=== PATIENT | female | born 1945 | race Hispanic/Latino ===

== ENCOUNTER → 2018-07-29 | Outpatient (CLI) | payer OTHER | END | disposition home or self-care (01) | LOC: RAH 10:46 | PROVIDERS: ATTEND Family Medicine | DX: Z12.31 Encounter for screening mammogram for malignant neoplasm of breast (principal) | CPT/HCPCS: 77067 ==

== ENCOUNTER → 2019-11-21 | Outpatient (CLI) | payer OTHER | END | disposition home or self-care (01) | LOC: RAH 09:22 | PROVIDERS: ATTEND Family Medicine | DX: R94.31 Abnormal electrocardiogram [ECG] [EKG] (principal); R07.9 Chest pain, unspecified | CPT/HCPCS: 93306; 93356 ==

== ENCOUNTER → 2019-12-01 | Outpatient (CLI) | payer OTHER ==
[~2019-12-01] MED LIST: REGADENOSON 0.4 MG/5 ML PF SYG IVP SCH
== END | disposition home or self-care (01) ==
LOC: RAH 09:01
PROVIDERS: ATTEND Family Medicine
DX: R94.31 Abnormal electrocardiogram [ECG] [EKG] (principal); R07.9 Chest pain, unspecified
CPT/HCPCS: 78452; 93017; 96374; A9500 ×2; J2785

== ENCOUNTER 2020-05-20 11:07 | Emergency (ER) | payer OTHER ==
[2020-05-20 13:06] LABS: BASOPHILS % (AUTO) 0.5 % (0.0-5.0); EOSINOPHILS % (AUTO) 0.8 % (0.0-8.0); HEMATOCRIT 35.6 % (36-48); LYMPHOCYTES % (AUTO) 12.4 % (21.0-51.0); MEAN CORPUSCULAR HEMOGLOBIN 27.3 pg (27.0-33.0); MEAN CORPUSCULAR HGB CONC 32.3 g/dL (32.0-36.0); MEAN CORPUSCULAR VOLUME 84.4 fL (79-99); MONOCYTES % (AUTO) 8.8 % (3.0-13.0); PLATELET COUNT (AUTO) 141 K/uL (130-400); RED BLOOD CELL COUNT(AUTO) 4.22 MIL/uL (4.00-5.50); RED CELL DISTRIBUTION WIDTH 13.4 % (11.0-15.5); WHITE BLOOD COUNT (AUTO) 6.5 K/uL (4.8-10.8)
[2020-05-20 13:24] LABS: ALBUMIN 3.8 g/dL (3.5-5.0); B-TYPE NATRIURETIC PEPTIDE 13 pg/mL (0-100); BILIRUBIN,TOTAL 0.4 mg/dL (0.2-1.0); POTASSIUM 4.1 mmol/L (3.5-5.1); TOTAL PROTEIN, SERUM 7.4 g/dL (6.0-8.3)
[2020-05-20 13:28] LABS: RAPID GROUP A STREP NEGATIVE (NEGATIVE)
[2020-05-20] MEDS ORDERED: ALBUTEROL INHALER 90MCG/INH IH ONE (14:12)
[2020-05-20] MEDS ORDERED: DEXAMETHASONE SOD PHOSPHATE 10MG/ML 1ML VIAL ONE (14:13)
== END 2020-05-20 17:45 | disposition home or self-care (01) ==
LOC: EDH 11:07
DX: J20.9 Acute bronchitis, unspecified (principal); R06.00 Dyspnea, unspecified; Z20.828 Contact with and (suspected) exposure to other viral communicable diseases; E11.9 Type 2 diabetes mellitus without complications; E78.00 Pure hypercholesterolemia, unspecified
CPT/HCPCS: 36415; 71045; 80053; 83605; 83880; 84484 ×2; 85025; 87426; 87804 ×2; 87880; 93005; 96374; 99285; J1100; U0003

== ENCOUNTER → 2021-03-11 | Outpatient (CLI) | payer OTHER ==
[~2021-03-11] MED LIST changes: +IOHEXOL-350 75 ML VIAL IV ONE; -REGADENOSON 0.4 MG/5 ML PF SYG IVP SCH
== END | disposition home or self-care (01) ==
LOC: RAH 09:48
PROVIDERS: ATTEND Internal Medicine Gastroenterology
DX: K76.89 Other specified diseases of liver (principal); R18.8 Other ascites; R59.1 Generalized enlarged lymph nodes
CPT/HCPCS: 74178; Q9967

== ENCOUNTER 2021-03-17 18:27 | Inpatient (IN) | payer OTHER ==
[~2021-03-17] VITALS: Ht 152.4 cm; Wt 77.7 kg
[2021-03-17 19:38] LABS: BASOPHILS % (AUTO) 0.2 % (0.0-5.0); EOSINOPHILS % (AUTO) 0.2 % (0.0-8.0); HEMATOCRIT 26.3 % (36-48); MEAN CORPUSCULAR HGB CONC 33.8 g/dL (32.0-36.0); MEAN CORPUSCULAR VOLUME 79.7 fL (79-99); MONOCYTES % (AUTO) 8.5 % (3.0-13.0); NEUTROPHILS % (AUTO) 83.9 % (40.0-77.0); PLATELET COUNT (AUTO) 185 K/uL (130-400); RED CELL DISTRIBUTION WIDTH 14.7 % (11.0-15.5); WHITE BLOOD COUNT (AUTO) 12.8 K/uL (4.8-10.8)
[2021-03-17 19:51] LABS: ALBUMIN 2.5 g/dL (3.5-5.0); BILIRUBIN,TOTAL 0.5 mg/dL (0.2-1.0); CREATININE 1.1 mg/dL (0.5-1.5); TOTAL PROTEIN, SERUM 5.9 g/dL (6.0-8.3)
[2021-03-17 20:02] LABS: POTASSIUM 2.8 mmol/L (3.5-5.1)
[2021-03-17] MEDS ORDERED: FAMOTIDINE 20MG VIAL IV ONE (20:30)
[2021-03-17] MEDS ORDERED: POTASSIUM BICARB/CIT AC 25 MEQ TABLET.EFF PO ONE (21:00)
[2021-03-17] MEDS ORDERED: ONDANSETRON 4MG INJ IVP ONE (21:00)
[2021-03-17] MEDS ORDERED: LIDOCAINE HCL-MPF 1% 2ML VIAL IV PRN (21:30)
[2021-03-17] MEDS ORDERED: POTASSIUM CHLORIDE 20MEQ/100ML 100 ML IV PRN (21:30)
[2021-03-17] MEDS ORDERED: POTASSIUM CHLORIDE 10% ELIXIR 20 MEQ/15 ML UDCUP PO PRN (21:30)
[2021-03-17] MEDS ORDERED: ACETAMINOPHEN 325 MG TAB PO PRN ×2 (21:30)
[2021-03-17 21:52] LABS: APPEARANCE,URINE CLOUDY (CLEAR); BILIRUBIN,URINE NEGATIVE (NEGATIVE); COLOR,URINE YELLOW (YELLOW); GLUCOSE, URINE (UA) NEGATIVE (NEGATIVE); KETONES,URINE 5 mg/dL (NEGATIVE); LEUKOCYTE ESTERASE ,URINE LARGE (NEGATIVE); NITRATE,URINE POSITIVE (NEGATIVE); OCCULT BLOOD,URINE LARGE (NEGATIVE); PH,URINE 5.5 (5.0-8.0); PROTEIN,URINE NEGATIVE (NEGATIVE); UROBILINOGEN,URINE 0.2 mg/dL (0.2-1.0)
[2021-03-17 22:04] LABS: BACTERIA,URINE Moderate /HPF (None Seen); SQUAMOUS EPITHELIAL CELL,UR Rare /HPF (0-2); TRANSITIONAL EPI CELLS,URINE Rare /HPF (None Seen); WBC,URINE 26-50 /HPF (0-1)
[2021-03-17] MEDS ORDERED: BACL10TA PO (22:52)
[2021-03-17] MEDS ORDERED: METF-446 PO (22:52)
[2021-03-17] MEDS ORDERED: AMLO-258 PO (22:53)
[2021-03-17] MEDS ORDERED: ESOM40CA54 PO (22:53)
[2021-03-17] MEDS ORDERED: LOSA1TAB54 PO (22:53)
[2021-03-17] MEDS ORDERED: SIMV10TA97 PO (22:53)
[2021-03-17] MEDS ORDERED: GLIP2.5T PO (22:53)
[2021-03-17] MEDS ORDERED: 0.9%NACL 1000ML 1,000 ML IV ONE (22:54)
[2021-03-17] MEDS: NS-20 MEQ KCL 1000ML 1,000 ML IV SCH (23:00)
[2021-03-17] MEDS ORDERED: CEFTRIAXONE 2GM VIAL IVP SCH (23:30)
[2021-03-18 06:44] LABS: BASOPHILS % (AUTO) 0.2 % (0.0-5.0); EOSINOPHILS % (AUTO) 0.5 % (0.0-8.0); LYMPHOCYTES % (AUTO) 5.2 % (21.0-51.0); MEAN CORPUSCULAR HEMOGLOBIN 26.6 pg (27.0-33.0); MEAN CORPUSCULAR HGB CONC 33.3 g/dL (32.0-36.0); MEAN CORPUSCULAR VOLUME 79.9 fL (79-99); MONOCYTES % (AUTO) 9.2 % (3.0-13.0); NEUTROPHILS % (AUTO) 84.1 % (40.0-77.0); PLATELET COUNT (AUTO) 155 K/uL (130-400); RED BLOOD CELL COUNT(AUTO) 3.38 MIL/uL (4.00-5.50); RED CELL DISTRIBUTION WIDTH 14.9 % (11.0-15.5); WHITE BLOOD COUNT (AUTO) 12.1 K/uL (4.8-10.8)
[2021-03-18 06:51] LABS: MAGNESIUM 0.7 mg/dL (1.80-2.40); PHOSPHORUS 3.4 mg/dL (2.5-4.9); POTASSIUM 3.8 mmol/L (3.5-5.1)
[2021-03-18] MEDS: INSULIN HUMULIN R 100 UNIT/ML 3ML SQ SCH ×4 (07:15→21:00)
[2021-03-18] MEDS: NS-20 MEQ KCL 1000ML 1,000 ML IV SCH (07:30)
[2021-03-18] MEDS ORDERED: 0.9%NACL 1000ML 1,000 ML IV SCH (08:00)
[2021-03-18] MEDS: PANTOPRAZOLE 40 MG/VIAL IVP SCH (08:44)
[2021-03-18] MEDS: METRONIDAZOLE 500 MG TABLET PO SCH ×2 (08:49→18:36)
[2021-03-18] MEDS ORDERED: ENOXAPARIN SODIUM 40 MG/0.4 ML SYRINGE SQ SCH (09:00)
[2021-03-18] MEDS ORDERED: LEVOFLOXACIN 500 MG/D5W 100 ML 100 ML IV SCH (09:00)
[2021-03-18] MEDS: BALSAM PERU/CASTOR OIL 60 GM TUBE TP SCH ×3 (09:47→22:50)
[2021-03-18] MEDS: NYSTATIN 15 GM POWDER TP SCH ×3 (09:47→21:00)
[2021-03-18] MEDS ORDERED: SODIUM CHLORIDE 1,000 MG TAB PO SCH (13:00)
[2021-03-18 13:22] LABS: POTASSIUM 3.6 mmol/L (3.5-5.1)
[2021-03-18] MEDS: SODIUM CHLORIDE 1,000 MG TAB PO SCH ×3 (13:30→23:08)
[2021-03-18] MEDS ORDERED: METRONIDAZOLE 500MG/100ML BAG 100 ML IVPB SCH (14:00)
[2021-03-18] MEDS: ONDANSETRON 4MG INJ IVP PRN (15:47)
[2021-03-18 19:10] LABS: CREATININE 0.9 mg/dL (0.5-1.5); POTASSIUM 3.7 mmol/L (3.5-5.1)
[2021-03-18] MEDS: MAGNESIUM 2GM PREMIX 50ML 50 ML IV PRN (19:43)
[2021-03-18 21:05] VITALS: BP 120/53
[2021-03-18] MEDS: SPIRONOLACTONE 25 MG TAB PO SCH (23:08)
[2021-03-19] VITALS (13 sets, daily range): BP systolic 113–140; BP diastolic 48–68
[2021-03-19] MEDS: METRONIDAZOLE 500 MG TABLET PO SCH ×3 (02:30→18:44)
[2021-03-19 04:01] LABS: HEMATOCRIT 27.6 % (36-48); MEAN CORPUSCULAR HEMOGLOBIN 27.1 pg (27.0-33.0); MEAN CORPUSCULAR HGB CONC 34.4 g/dL (32.0-36.0); MEAN CORPUSCULAR VOLUME 78.9 fL (79-99); RED BLOOD CELL COUNT(AUTO) 3.5 MIL/uL (4.00-5.50); RED CELL DISTRIBUTION WIDTH 14.8 % (11.0-15.5); WHITE BLOOD COUNT (AUTO) 13.8 K/uL (4.8-10.8)
[2021-03-19 04:23] LABS: POTASSIUM 3.7 mmol/L (3.5-5.1); THYROID STIMULATING HORMONE 2.68 uIU/mL (0.36-3.74)
[2021-03-19] MEDS: ONDANSETRON 4MG INJ IVP PRN ×2 (05:39→11:10)
[2021-03-19] MEDS: INSULIN HUMULIN R 100 UNIT/ML 3ML SQ SCH ×4 (07:30→20:44)
[2021-03-19] MEDS: SPIRONOLACTONE 25 MG TAB PO SCH ×2 (08:00→20:44)
[2021-03-19] MEDS: PANTOPRAZOLE 40 MG/VIAL IVP SCH (09:00)
[2021-03-19] MEDS: BALSAM PERU/CASTOR OIL 60 GM TUBE TP SCH ×3 (09:00→20:45)
[2021-03-19] MEDS: SODIUM CHLORIDE 1,000 MG TAB PO SCH ×3 (09:00→20:43)
[2021-03-19] MEDS: NYSTATIN 15 GM POWDER TP SCH ×3 (09:00→20:45)
[2021-03-19 10:59] LABS: INR 1.21 (0.85-1.15)
[2021-03-19 11:00] LABS: PARTIAL THROMBOPLASTIN TIME 30.9 SEC (26.3-35.5)
[2021-03-19] MEDS: CEFTRIAXONE 2GM VIAL IVP SCH (11:11)
[2021-03-19] MEDS: LEVOFLOXACIN 250 MG/D5W 50ML 50 ML IVPB SCH (11:12)
[2021-03-19] MEDS ORDERED: FENTANYL CITRATE PF 50 MCG/1 ML 2ML VIAL ONE (12:56)
[2021-03-19] MEDS ORDERED: MIDAZOLAM HCL 1 MG/ML 2ML VIAL ONE (12:57)
[2021-03-19 16:02] LABS: APPEARANCE BODY FLUID CLEAR (CLEAR); COLOR,BODY FLUID YELLOW (LT YELLOW); SPECIMENTYPE,BODY FLUID ASCITES; TOTAL VOLUME,BODY FLUID 4500 mL
[2021-03-19 16:03] LABS: BODY FLUID RBC 38 /cu. mm.; BODY FLUID WBC 107 /cu. mm.
[2021-03-19 16:15] LABS: BF EOSINOPHIL 3 %; BF LYMPHOCYTE 37 %; BF MESOTHELIAL 7 %; BF MONOCYTE 2 %
[2021-03-19] MEDS: MAGNESIUM 2GM PREMIX 50ML 50 ML IV PRN (20:45)
[2021-03-20] VITALS: BP 124/49
[2021-03-20] MEDS: METRONIDAZOLE 500 MG TABLET PO SCH ×4 (00:37→23:25)
[2021-03-20 04:00] VITALS: BP 119/53
[2021-03-20 04:16] LABS: HEMATOCRIT 27.1 % (36-48); MEAN CORPUSCULAR HEMOGLOBIN 26.9 pg (27.0-33.0); MEAN CORPUSCULAR HGB CONC 33.9 g/dL (32.0-36.0); MEAN CORPUSCULAR VOLUME 79.2 fL (79-99); RED BLOOD CELL COUNT(AUTO) 3.42 MIL/uL (4.00-5.50); RED CELL DISTRIBUTION WIDTH 14.8 % (11.0-15.5); WHITE BLOOD COUNT (AUTO) 10.7 K/uL (4.8-10.8)
[2021-03-20 04:25] LABS: CREATININE 0.9 mg/dL (0.5-1.5); MAGNESIUM 1.5 mg/dL (1.80-2.40); POTASSIUM 3.2 mmol/L (3.5-5.1)
[2021-03-20] MEDS: INSULIN HUMULIN R 100 UNIT/ML 3ML SQ SCH ×4 (05:56→20:41)
[2021-03-20] MEDS: KCL 20 MEQ ERTAB PO PRN ×3 (06:22→23:26)
[2021-03-20] MEDS: MAGNESIUM 2GM PREMIX 50ML 50 ML IV PRN (06:23)
[2021-03-20 07:41] VITALS: BP 126/52
[2021-03-20] MEDS ORDERED: CALCIUM GLUC 1GM/10ML VIAL IV SCH (08:30)
[2021-03-20] MEDS: LEVOFLOXACIN 250 MG/D5W 50ML 50 ML IVPB SCH (08:49)
[2021-03-20] MEDS: CEFTRIAXONE 2GM VIAL IVP SCH (08:49)
[2021-03-20] MEDS: PANTOPRAZOLE 40 MG/VIAL IVP SCH (08:49)
[2021-03-20] MEDS: SPIRONOLACTONE 25 MG TAB PO SCH ×2 (08:52→19:33)
[2021-03-20] MEDS: NYSTATIN 15 GM POWDER TP SCH ×3 (08:53→19:38)
[2021-03-20] MEDS: ENOXAPARIN SODIUM 80 MG/0.8 ML SQ SCH ×2 (08:53→19:34)
[2021-03-20] MEDS: BALSAM PERU/CASTOR OIL 60 GM TUBE TP SCH ×3 (08:53→19:38)
[2021-03-20] MEDS ORDERED: CALCIUM GLUC 1GM 1 GM in 0.9%NACL 100ML 100 ML IV SCH (09:00)
[2021-03-20] MEDS ORDERED: ENOXAPARIN SODIUM 1 MG/KG SQ SCH (09:00)
[2021-03-20 10:41] VITALS: BP 127/49
[2021-03-20] MEDS: SODIUM CHLORIDE 1,000 MG TAB PO SCH ×3 (12:19→21:53)
[2021-03-20 15:16] VITALS: BP 122/56
[2021-03-20 19:00] VITALS: BP 126/53
[2021-03-21] VITALS (7 sets, daily range): BP systolic 114–141; BP diastolic 53–60
[2021-03-21 04:28] LABS: HEMATOCRIT 27.5 % (36-48); MEAN CORPUSCULAR HGB CONC 33.5 g/dL (32.0-36.0); MEAN CORPUSCULAR VOLUME 80.6 fL (79-99); RED BLOOD CELL COUNT(AUTO) 3.41 MIL/uL (4.00-5.50); RED CELL DISTRIBUTION WIDTH 15.1 % (11.0-15.5); WHITE BLOOD COUNT (AUTO) 11.7 K/uL (4.8-10.8)
[2021-03-21 04:37] LABS: CREATININE 0.8 mg/dL (0.5-1.5)
[2021-03-21] MEDS: SODIUM CHLORIDE 1,000 MG TAB PO SCH ×3 (05:28→17:02)
[2021-03-21] MEDS: INSULIN HUMULIN R 100 UNIT/ML 3ML SQ SCH ×5 (06:17→21:23)
[2021-03-21] MEDS: LEVOFLOXACIN 250 MG/D5W 50ML 50 ML IVPB SCH (09:10)
[2021-03-21] MEDS: ONDANSETRON 4MG INJ IVP PRN (09:10)
[2021-03-21] MEDS: PANTOPRAZOLE 40 MG/VIAL IVP SCH (09:10)
[2021-03-21] MEDS: SPIRONOLACTONE 25 MG TAB PO SCH ×2 (09:10→19:56)
[2021-03-21] MEDS: METRONIDAZOLE 500 MG TABLET PO SCH ×2 (09:10→17:02)
[2021-03-21] MEDS: CEFTRIAXONE 2GM VIAL IVP SCH (09:10)
[2021-03-21] MEDS: FUROSEMIDE 20 MG TABLET PO SCH (09:10)
[2021-03-21] MEDS: ENOXAPARIN SODIUM 80 MG/0.8 ML SQ SCH ×2 (09:11→19:56)
[2021-03-21] MEDS: BALSAM PERU/CASTOR OIL 60 GM TUBE TP SCH ×3 (09:11→19:49)
[2021-03-21] MEDS: NYSTATIN 15 GM POWDER TP SCH ×3 (09:11→19:49)
[2021-03-21 13:39] LABS: INR 1.41 (0.85-1.15); PROTHROMBIN TIME 14.9 SEC (9.6-11.6)
[2021-03-21 13:40] LABS: PARTIAL THROMBOPLASTIN TIME 44.2 SEC (26.3-35.5)
[2021-03-22] MEDS: METRONIDAZOLE 500 MG TABLET PO SCH ×3 (00:16→17:06)
[2021-03-22] MEDS: SODIUM CHLORIDE 1,000 MG TAB PO SCH ×4 (00:16→17:06)
[2021-03-22 03:26] VITALS: BP 124/60
[2021-03-22 03:54] LABS: HEMATOCRIT 25.8 % (36-48); MEAN CORPUSCULAR HGB CONC 33.7 g/dL (32.0-36.0); MEAN CORPUSCULAR VOLUME 80.1 fL (79-99); RED BLOOD CELL COUNT(AUTO) 3.22 MIL/uL (4.00-5.50); RED CELL DISTRIBUTION WIDTH 15.5 % (11.0-15.5); WHITE BLOOD COUNT (AUTO) 12.2 K/uL (4.8-10.8)
[2021-03-22 04:17] LABS: ALBUMIN 1.8 g/dL (3.5-5.0); BILIRUBIN,TOTAL 0.3 mg/dL (0.2-1.0); CREATININE 0.9 mg/dL (0.5-1.5); TOTAL PROTEIN, SERUM 4.7 g/dL (6.0-8.3)
[2021-03-22] MEDS: INSULIN HUMULIN R 100 UNIT/ML 3ML SQ SCH ×4 (06:36→21:37)
[2021-03-22] MEDS: NYSTATIN 15 GM POWDER TP SCH ×3 (09:00→21:00)
[2021-03-22 10:51] VITALS: BP 130/49
[2021-03-22] MEDS: LEVOFLOXACIN 250 MG/D5W 50ML 50 ML IVPB SCH (11:29)
[2021-03-22] MEDS: CEFTRIAXONE 2GM VIAL IVP SCH (11:29)
[2021-03-22] MEDS: PANTOPRAZOLE 40 MG/VIAL IVP SCH (11:30)
[2021-03-22] MEDS: FUROSEMIDE 20 MG TABLET PO SCH (11:32)
[2021-03-22] MEDS: SPIRONOLACTONE 25 MG TAB PO SCH (11:32)
[2021-03-22] MEDS: ENOXAPARIN SODIUM 80 MG/0.8 ML SQ SCH ×2 (11:36→21:35)
[2021-03-22] MEDS: BALSAM PERU/CASTOR OIL 60 GM TUBE TP SCH ×3 (11:45→21:00)
[2021-03-22] MEDS: ONDANSETRON 4MG INJ IVP PRN (12:45)
[2021-03-22 16:20] VITALS: BP 114/73
[2021-03-22 19:45] VITALS: BP 129/53
[2021-03-22 23:38] VITALS: BP 137/56
[2021-03-23] MEDS: METRONIDAZOLE 500 MG TABLET PO SCH ×4 (00:19→16:50)
[2021-03-23] MEDS: SODIUM CHLORIDE 1,000 MG TAB PO SCH ×4 (00:19→18:06)
[2021-03-23 03:29] VITALS: BP 117/53
[2021-03-23 04:18] LABS: HEMATOCRIT 25.4 % (36-48); MEAN CORPUSCULAR HEMOGLOBIN 27.2 pg (27.0-33.0); MEAN CORPUSCULAR HGB CONC 33.1 g/dL (32.0-36.0); MEAN CORPUSCULAR VOLUME 82.2 fL (79-99); PLATELET COUNT (AUTO) 130 K/uL (130-400); RED BLOOD CELL COUNT(AUTO) 3.09 MIL/uL (4.00-5.50); RED CELL DISTRIBUTION WIDTH 15.6 % (11.0-15.5); WHITE BLOOD COUNT (AUTO) 12.4 K/uL (4.8-10.8)
[2021-03-23 04:32] LABS: ALBUMIN 1.9 g/dL (3.5-5.0); BILIRUBIN,TOTAL 0.3 mg/dL (0.2-1.0); MAGNESIUM 1.1 mg/dL (1.80-2.40); POTASSIUM 3.9 mmol/L (3.5-5.1); TOTAL PROTEIN, SERUM 4.9 g/dL (6.0-8.3)
[2021-03-23] MEDS: MAGNESIUM 2GM PREMIX 50ML 50 ML IV PRN (04:57)
[2021-03-23 05:13] LABS: LYMPHOCYTES % (MANUAL) 2 % (22-44); MAN.DIFF COMMENT-IMPRESSION MANUAL DIFFERENTIAL; MONOCYTES % (MANUAL) 8 % (2-9); PLATELET MORPHOLOGY COMMENT ADEQUATE; SEGMENTED NEUTROPHILS % 90 % (40-70)
[2021-03-23] MEDS: INSULIN HUMULIN R 100 UNIT/ML 3ML SQ SCH ×4 (06:05→20:43)
[2021-03-23 07:00] VITALS: BP 136/58
[2021-03-23] MEDS: CEFTRIAXONE 2GM VIAL IVP SCH (08:18)
[2021-03-23] MEDS: PANTOPRAZOLE 40 MG/VIAL IVP SCH (08:18)
[2021-03-23] MEDS: BALSAM PERU/CASTOR OIL 60 GM TUBE TP SCH ×3 (08:19→21:00)
[2021-03-23] MEDS: NYSTATIN 15 GM POWDER TP SCH ×3 (08:19→21:00)
[2021-03-23] MEDS: LEVOFLOXACIN 250 MG/D5W 50ML 50 ML IVPB SCH (08:19)
[2021-03-23] MEDS: ENOXAPARIN SODIUM 80 MG/0.8 ML SQ SCH ×4 (08:19→20:39)
[2021-03-23 11:00] VITALS: BP 120/44
[2021-03-23] MEDS: ONDANSETRON 4MG INJ IVP PRN (12:28)
[2021-03-23 16:00] VITALS: BP 117/52
[2021-03-23 20:48] VITALS: BP 104/45
[2021-03-23 23:33] VITALS: BP 120/49
[2021-03-24] MEDS: SODIUM CHLORIDE 1,000 MG TAB PO SCH ×5 (00:04→23:35)
[2021-03-24] MEDS: METRONIDAZOLE 500 MG TABLET PO SCH ×4 (00:04→23:35)
[2021-03-24 03:29] LABS: BASOPHILS % (AUTO) 0.1 % (0.0-5.0); EOSINOPHILS % (AUTO) 0.1 % (0.0-8.0); HEMATOCRIT 24.8 % (36-48); LYMPHOCYTES % (AUTO) 5.8 % (21.0-51.0); MEAN CORPUSCULAR HEMOGLOBIN 27.1 pg (27.0-33.0); MEAN CORPUSCULAR HGB CONC 32.7 g/dL (32.0-36.0); MEAN CORPUSCULAR VOLUME 82.9 fL (79-99); MONOCYTES % (AUTO) 11.5 % (3.0-13.0); NEUTROPHILS % (AUTO) 81.5 % (40.0-77.0); PLATELET COUNT (AUTO) 112 K/uL (130-400); RED BLOOD CELL COUNT(AUTO) 2.99 MIL/uL (4.00-5.50); RED CELL DISTRIBUTION WIDTH 15.9 % (11.0-15.5); WHITE BLOOD COUNT (AUTO) 10.5 K/uL (4.8-10.8)
[2021-03-24 03:42] LABS: ALBUMIN 1.9 g/dL (3.5-5.0); BILIRUBIN,TOTAL 0.3 mg/dL (0.2-1.0); MAGNESIUM 1.5 mg/dL (1.80-2.40); POTASSIUM 3.5 mmol/L (3.5-5.1)
[2021-03-24] MEDS: MAGNESIUM 2GM PREMIX 50ML 50 ML IV PRN (03:52)
[2021-03-24 04:28] VITALS: BP 125/63
[2021-03-24] MEDS: INSULIN HUMULIN R 100 UNIT/ML 3ML SQ SCH ×4 (06:03→21:28)
[2021-03-24 08:00] VITALS: BP 135/56
[2021-03-24] MEDS: PANTOPRAZOLE 40 MG/VIAL IVP SCH (08:27)
[2021-03-24] MEDS: LEVOFLOXACIN 250 MG/D5W 50ML 50 ML IVPB SCH (08:27)
[2021-03-24] MEDS: CEFTRIAXONE 2GM VIAL IVP SCH (08:27)
[2021-03-24] MEDS: NYSTATIN 15 GM POWDER TP SCH ×3 (08:28→21:30)
[2021-03-24] MEDS: ENOXAPARIN SODIUM 80 MG/0.8 ML SQ SCH ×2 (08:28→21:29)
[2021-03-24] MEDS: BALSAM PERU/CASTOR OIL 60 GM TUBE TP SCH ×3 (08:28→21:31)
[2021-03-24 11:53] VITALS: BP 131/53
[2021-03-24 16:00] VITALS: BP 134/64
[2021-03-24] MEDS: ONDANSETRON 4MG INJ IVP PRN (16:49)
[2021-03-24 19:58] VITALS: BP 129/62
[2021-03-24] MEDS: CLOTRIMAZOLE 30 GM CREAM.GM. TP SCH (21:30)
[2021-03-24 23:33] VITALS: BP 128/60
[2021-03-25] VITALS (13 sets, daily range): BP systolic 116–141; BP diastolic 51–79
[2021-03-25 04:47] LABS: BASOPHILS % (AUTO) 0.2 % (0.0-5.0); EOSINOPHILS % (AUTO) 0.2 % (0.0-8.0); HEMATOCRIT 26.3 % (36-48); LYMPHOCYTES % (AUTO) 6.9 % (21.0-51.0); MEAN CORPUSCULAR HGB CONC 33.8 g/dL (32.0-36.0); MEAN CORPUSCULAR VOLUME 79.7 fL (79-99); MONOCYTES % (AUTO) 11.6 % (3.0-13.0); NEUTROPHILS % (AUTO) 79.1 % (40.0-77.0); PLATELET COUNT (AUTO) 167 K/uL (130-400); RED CELL DISTRIBUTION WIDTH 15.9 % (11.0-15.5); WHITE BLOOD COUNT (AUTO) 12.2 K/uL (4.8-10.8)
[2021-03-25 05:01] LABS: INR 1.14 (0.85-1.15); PROTHROMBIN TIME 12.3 SEC (9.6-11.6)
[2021-03-25 05:02] LABS: PARTIAL THROMBOPLASTIN TIME 37.4 SEC (26.3-35.5)
[2021-03-25 05:07] LABS: BILIRUBIN,TOTAL 0.3 mg/dL (0.2-1.0); MAGNESIUM 1.8 mg/dL (1.80-2.40); POTASSIUM 3.4 mmol/L (3.5-5.1); TOTAL PROTEIN, SERUM 5.5 g/dL (6.0-8.3)
[2021-03-25] MEDS: MAGNESIUM 2GM PREMIX 50ML 50 ML IV PRN (06:14)
[2021-03-25] MEDS: INSULIN HUMULIN R 100 UNIT/ML 3ML SQ SCH ×4 (06:15→20:53)
[2021-03-25] MEDS: SODIUM CHLORIDE 1,000 MG TAB PO SCH ×5 (06:15→23:13)
[2021-03-25] MEDS: ENOXAPARIN SODIUM 80 MG/0.8 ML SQ SCH ×2 (08:37→20:52)
[2021-03-25] MEDS: CEFTRIAXONE 2GM VIAL IVP SCH (08:54)
[2021-03-25] MEDS: PANTOPRAZOLE 40 MG/VIAL IVP SCH (08:54)
[2021-03-25] MEDS: LEVOFLOXACIN 250 MG/D5W 50ML 50 ML IVPB SCH (08:54)
[2021-03-25] MEDS: NYSTATIN 15 GM POWDER TP SCH ×3 (08:59→20:54)
[2021-03-25] MEDS: METRONIDAZOLE 500 MG TABLET PO SCH ×5 (09:00→23:13)
[2021-03-25] MEDS: CLOTRIMAZOLE 30 GM CREAM.GM. TP SCH ×2 (09:00→20:53)
[2021-03-25] MEDS: BALSAM PERU/CASTOR OIL 60 GM TUBE TP SCH ×3 (09:02→20:54)
[2021-03-26 03:57] VITALS: BP 126/62
[2021-03-26 06:09] LABS: MEAN CORPUSCULAR HEMOGLOBIN 26.5 pg (27.0-33.0); MEAN CORPUSCULAR HGB CONC 33.1 g/dL (32.0-36.0); MEAN CORPUSCULAR VOLUME 80.2 fL (79-99); RED BLOOD CELL COUNT(AUTO) 3.24 MIL/uL (4.00-5.50); RED CELL DISTRIBUTION WIDTH 15.9 % (11.0-15.5); WHITE BLOOD COUNT (AUTO) 13.3 K/uL (4.8-10.8)
[2021-03-26] MEDS: INSULIN HUMULIN R 100 UNIT/ML 3ML SQ SCH ×3 (06:13→16:30)
[2021-03-26] MEDS: METRONIDAZOLE 500 MG TABLET PO SCH ×2 (06:19→21:25)
[2021-03-26] MEDS: SODIUM CHLORIDE 1,000 MG TAB PO SCH ×3 (06:19→21:25)
[2021-03-26 06:22] LABS: INR 1.1 (0.85-1.15); PROTHROMBIN TIME 11.9 SEC (9.6-11.6)
[2021-03-26 06:23] LABS: PARTIAL THROMBOPLASTIN TIME 33.3 SEC (26.3-35.5)
[2021-03-26 06:27] LABS: ALBUMIN 1.8 g/dL (3.5-5.0); BILIRUBIN,TOTAL 0.3 mg/dL (0.2-1.0); CREATININE 0.9 mg/dL (0.5-1.5); MAGNESIUM 1.9 mg/dL (1.80-2.40); TOTAL PROTEIN, SERUM 5.2 g/dL (6.0-8.3)
[2021-03-26] MEDS: LEVOFLOXACIN 250 MG/D5W 50ML 50 ML IVPB SCH (08:00)
[2021-03-26 08:02] VITALS: BP 132/58
[2021-03-26] MEDS ORDERED: LEVOFLOXACIN 500 MG TABLET PO SCH (09:00)
[2021-03-26] MEDS: CLOTRIMAZOLE 30 GM CREAM.GM. TP SCH ×2 (09:42→21:26)
[2021-03-26] MEDS: PANTOPRAZOLE 40 MG/VIAL IVP SCH (09:42)
[2021-03-26] MEDS: CEFTRIAXONE 2GM VIAL IVP SCH (09:42)
[2021-03-26] MEDS: NYSTATIN 15 GM POWDER TP SCH ×3 (09:42→21:26)
[2021-03-26] MEDS: BALSAM PERU/CASTOR OIL 60 GM TUBE TP SCH ×3 (09:43→21:27)
[2021-03-26 10:46] VITALS: BP 128/64
[2021-03-26] MEDS: ENOXAPARIN SODIUM 80 MG/0.8 ML SQ SCH ×2 (12:59→21:26)
[2021-03-26] MEDS ORDERED: METR-172 PO (13:55)
[2021-03-26] MEDS ORDERED: SODI100037 PO (13:55)
[2021-03-26] MEDS ORDERED: APIX5TAB PO (13:55)
[2021-03-26] MEDS ORDERED: LOSA25TA41 PO (13:55)
[2021-03-26 16:40] VITALS: BP 117/59
[2021-03-26] MEDS ORDERED: LEVO750T46 PO ×3 (20:43→21:05)
== END 2021-03-26 22:32 | disposition home or self-care (01) | DRG 754 ==
LOC: EDH 18:27 → OBSVTOIN 21:20 → EDHIP 21:20 → 4CH 03-18 20:57
PROVIDERS: ADMIT Internal Medicine Critical Care Medicine; ATTEND Internal Medicine Critical Care Medicine
PROC: 0W9G3ZZ Drainage of Peritoneal Cavity, Percutaneous Approach (ICD-10-PCS; principal; 2021-03-19)
PROC: 0FB23ZX Excision of Left Lobe Liver, Percutaneous Approach, Diagnostic (ICD-10-PCS; 2021-03-19)
PROC: 02HV33Z Insertion of Infusion Device into Superior Vena Cava, Percutaneous Approach (ICD-10-PCS; 2021-03-21)
PROC: 0W9G3ZZ Drainage of Peritoneal Cavity, Percutaneous Approach (ICD-10-PCS; 2021-03-25)
DX: C56.9 Malignant neoplasm of unspecified ovary (principal); I50.33 Acute on chronic diastolic (congestive) heart failure; E87.1 Hypo-osmolality and hyponatremia; N39.0 Urinary tract infection, site not specified; C78.7 Secondary malignant neoplasm of liver and intrahepatic bile duct; R18.0 Malignant ascites; I82.401 Acute embolism and thrombosis of unspecified deep veins of right lower extremity; I11.0 Hypertensive heart disease with heart failure; E87.6 Hypokalemia; E83.42 Hypomagnesemia; E78.5 Hyperlipidemia, unspecified; E11.43 Type 2 diabetes mellitus with diabetic autonomic (poly)neuropathy; E86.0 Dehydration; B96.1 Klebsiella pneumoniae [K. pneumoniae] as the cause of diseases classified elsewhere; L89.159 Pressure ulcer of sacral region, unspecified stage; D64.9 Anemia, unspecified; K21.9 Gastro-esophageal reflux disease without esophagitis; K31.84 Gastroparesis; K57.90 Diverticulosis of intestine, part unspecified, without perforation or abscess without bleeding; R59.1 Generalized enlarged lymph nodes; R13.10 Dysphagia, unspecified; R16.0 Hepatomegaly, not elsewhere classified; R62.7 Adult failure to thrive; Z74.01 Bed confinement status; Z68.34 Body mass index [BMI] 34.0-34.9, adult; Z88.2 Allergy status to sulfonamides; Z88.8 Allergy status to other drugs, medicaments and biological substances; Z79.01 Long term (current) use of anticoagulants; Z79.899 Other long term (current) drug therapy; Z82.49 Family history of ischemic heart disease and other diseases of the circulatory system; Z80.49 Family history of malignant neoplasm of other genital organs
CPT/HCPCS: 36415; 47000; 49083; 70450; 71045; 76856; 76942; 80048; 80053; 81001; 82042; 82105; 82140; 82150; 82270; 82378; 82948; 83615; 83690; 83735; 83880; 84100; 84443; 84484; 85025; 85027; 85610; 85730; 86304; 86316; 87046; 87071; 87077; 87088; 87177; 87186; 87205; 87324; 87338; 88112; 88305; 88307; 88313; 88341; 88342; 89051; 92610; 93970; 97039; 99152; 99153; C1729; C1894; C9113; G0378; J0610; J0696; J1650; J1815; J1956; J2250; J2405; J3010; J3475; J3480; J3490; J7030

== ENCOUNTER 2021-03-29 23:00 | Inpatient (IN) | payer OTHER ==
[~2021-03-29] VITALS: Ht 152.4 cm; Wt 83.5 kg
[~2021-03-29 23:00] MED LIST changes: +APIX5TAB PO; +ESOM40CA54 PO; +GLIP2.5T PO; -IOHEXOL-350 75 ML VIAL IV ONE; +LEVO750T46 PO; +LOSA25TA41 PO; +METF-446 PO; +METR-172 PO; +SIMV10TA97 PO; +SODI100037 PO
[2021-03-29 23:31] LABS: BASOPHILS % (AUTO) 0.1 % (0.0-5.0); EOSINOPHILS % (AUTO) 1.6 % (0.0-8.0); HEMATOCRIT 24.9 % (36-48); LYMPHOCYTES % (AUTO) 5.3 % (21.0-51.0); MEAN CORPUSCULAR HEMOGLOBIN 26.6 pg (27.0-33.0); MEAN CORPUSCULAR HGB CONC 32.9 g/dL (32.0-36.0); MEAN CORPUSCULAR VOLUME 80.8 fL (79-99); MONOCYTES % (AUTO) 6.2 % (3.0-13.0); NEUTROPHILS % (AUTO) 84.8 % (40.0-77.0); PLATELET COUNT (AUTO) 141 K/uL (130-400); RED BLOOD CELL COUNT(AUTO) 3.08 MIL/uL (4.00-5.50); RED CELL DISTRIBUTION WIDTH 16.2 % (11.0-15.5); WHITE BLOOD COUNT (AUTO) 13.9 K/uL (4.8-10.8)
[2021-03-29 23:47] LABS: ALBUMIN 1.8 g/dL (3.5-5.0); BILIRUBIN,TOTAL 0.3 mg/dL (0.2-1.0); CREATININE 1.4 mg/dL (0.5-1.5); MAGNESIUM 1.6 mg/dL (1.80-2.40); POTASSIUM 4.1 mmol/L (3.5-5.1); TOTAL PROTEIN, SERUM 5.2 g/dL (6.0-8.3)
[2021-03-30] VITALS (8 sets, daily range): BP systolic 103–117; BP diastolic 38–57
[2021-03-30] MEDS ORDERED: IOHEXOL 350 MG/ML 100ML INFUS..BTL IV ONE (00:05)
[2021-03-30] MEDS ORDERED: DEXTROSE 50%-WATER 50 ML DISP.SYRIN IV ONE (00:42)
[2021-03-30] MEDS ORDERED: MAGNESIUM 2GM PREMIX 50ML 50 ML IV ONE (00:48)
[2021-03-30] MEDS ORDERED: CALCIUM GLUC 1GM/10ML VIAL ONE (02:23)
[2021-03-30] MEDS ORDERED: ALBUMIN (HUMAN) 25% 100 ML IV STA (02:45)
[2021-03-30] MEDS ORDERED: ALBUMIN (HUMAN) 25% 100 ML IV ONE (02:55)
[2021-03-30] MEDS ORDERED: KCL 20 MEQ ERTAB PO PRN ×2 (03:00)
[2021-03-30] MEDS ORDERED: CALCIUM GLUC 1GM 1 GM in 0.9%NACL 100ML 100 ML IV SCH (03:00)
[2021-03-30] MEDS ORDERED: GLUCAGON 1MG KIT 1 MG ML IM PRN (03:00)
[2021-03-30] MEDS ORDERED: ACETAMINOPHEN WITH CODEINE 1 TAB TAB PO PRN (03:00)
[2021-03-30] MEDS ORDERED: DEXTROSE 50%-WATER 50 ML DISP.SYRIN IV PRN (03:00)
[2021-03-30] MEDS ORDERED: 0.9%NACL 1000ML 1,000 ML IV SCH (03:00)
[2021-03-30] MEDS ORDERED: POTASSIUM CHLORIDE 10MEQ/100ML 100 ML IV PRN (03:00)
[2021-03-30] MEDS ORDERED: LIDOCAINE HCL-MPF 1% 2ML VIAL IV PRN ×2 (03:00)
[2021-03-30] MEDS ORDERED: POTASSIUM CHLORIDE 10% ELIXIR 20 MEQ/15 ML UDCUP PO PRN ×2 (03:00)
[2021-03-30] MEDS ORDERED: POTASSIUM CHLORIDE 20MEQ/100ML 100 ML IV PRN (03:00)
[2021-03-30 03:18] LABS: APPEARANCE,URINE Cloudy (CLEAR); BILIRUBIN,URINE Small (NEGATIVE); COLOR,URINE Dark Yellow (YELLOW); GLUCOSE, URINE (UA) Negative (NEGATIVE); KETONES,URINE Trace mg/dL (NEGATIVE); LEUKOCYTE ESTERASE ,URINE Moderate (NEGATIVE); NITRATE,URINE Positive (NEGATIVE); OCCULT BLOOD,URINE Trace (NEGATIVE); PROTEIN,URINE Trace mg/dL (NEGATIVE)
[2021-03-30] MEDS ORDERED: ONDANSETRON 4MG INJ IVP PRN (03:30)
[2021-03-30 03:34] LABS: BACTERIA,URINE Rare /HPF (None Seen)
[2021-03-30 03:35] LABS: YEAST,URINE BUDDING Many /HPF (None Seen)
[2021-03-30 03:37] LABS: SQUAMOUS EPITHELIAL CELL,UR Few /HPF (0-2)
[2021-03-30] MEDS ORDERED: DEXTROSE 10%-WATER 1,000 ML IV ONE (03:40)
[2021-03-30] MEDS ORDERED: DEXTROSE 10%-WATER 500 ML IV ONE (03:45)
[2021-03-30] MEDS ORDERED: NACL 23.4% (4MEQ/ML) 30ML VIAL 154 MEQ in DEXTROSE 10%-WATER 961.5 ML IV ONE (04:00)
[2021-03-30] MEDS ORDERED: FUROSEMIDE 40MG VIAL IV ONE (04:00)
[2021-03-30] MEDS: FUROSEMIDE 20MG VIAL IV SCH ×2 (04:30→17:21)
[2021-03-30] MEDS: CEFTRIAXONE 1G VIAL IVP SCH (05:02)
[2021-03-30 05:41] LABS: % IRON SATURATION 48.2 % (22-44)
[2021-03-30] MEDS ORDERED: PHARMACY COMMUNICATION MISC SCH ×2 (06:18→17:30)
[2021-03-30] MEDS: LACTOBACILLUS RHAMNOSUS GG 1 EACH CAP.SPRINK PO SCH ×3 (08:48→20:43)
[2021-03-30] MEDS: SPIRONOLACTONE 25 MG TAB PO SCH (08:48)
[2021-03-30] MEDS ORDERED: SPIRONOLACTONE 25 MG TAB PO SCH (09:00)
[2021-03-30] MEDS ORDERED: FAMOTIDINE 20MG TAB PO SCH (09:00)
[2021-03-30] MEDS ORDERED: APIXABAN 5 MG TABLET PO SCH (09:00)
[2021-03-30] MEDS ORDERED: DEXTROSE IV ONE ×4 (13:00)
[2021-03-30] MEDS ORDERED: SODIUM CHLORIDE IV ONE ×4 (13:00)
[2021-03-30 15:14] LABS: ABG BASE EXCESS -8.5 mmol/L (-2.0-3.0); ABG HCO3 14.6 mmol/L (21.0-28.0); ABG OXYGEN SATURATION 97.5 % (95.0-99.0); ABG PCO2 23 mmHg (32-45)
[2021-03-30] MEDS ORDERED: COMPOUND IV REFRIGERATED 1 EACH IVSOLN MISC PRN (17:30)
[2021-03-30] MEDS: SODIUM BICARB 50MEQ 50ML VIAL 150 MEQ in DEXTROSE 5%-WATER 1,000 ML IV SCH (17:52)
[2021-03-30] MEDS: DEXTROSE 10%-WATER 500 ML IV SCH ×2 (18:00→20:44)
[2021-03-30] MEDS ORDERED: SODIUM BICARB 50MEQ 50ML VIAL 150 MEQ in DEXTROSE 5%-WATER 1,000 ML IV SCH (18:00)
[2021-03-30] MEDS: ENOXAPARIN SODIUM 80 MG/0.8 ML SQ SCH (18:19)
[2021-03-30 18:26] LABS: CREATININE 1.3 mg/dL (0.5-1.5); POTASSIUM 3.5 mmol/L (3.5-5.1)
[2021-03-30] MEDS ORDERED: SOLU-MEDROL 40MG VIAL IVP ONE (21:30)
[2021-03-31] VITALS (24 sets, daily range): BP systolic 91–127; BP diastolic 41–65
[2021-03-31 00:24] LABS: CREATININE 1.2 mg/dL (0.5-1.5); POTASSIUM 3.7 mmol/L (3.5-5.1)
[2021-03-31] MEDS: CEFTRIAXONE 1G VIAL IVP SCH (05:10)
[2021-03-31] MEDS: FUROSEMIDE 20MG VIAL IV SCH ×2 (05:11→15:22)
[2021-03-31] MEDS: SODIUM BICARB 50MEQ 50ML VIAL 150 MEQ in DEXTROSE 5%-WATER 1,000 ML IV SCH ×2 (05:47→15:20)
[2021-03-31 05:49] LABS: HEMATOCRIT 23.6 % (36-48); MEAN CORPUSCULAR HEMOGLOBIN 26.9 pg (27.0-33.0); MEAN CORPUSCULAR HGB CONC 33.5 g/dL (32.0-36.0); MEAN CORPUSCULAR VOLUME 80.3 fL (79-99); RED BLOOD CELL COUNT(AUTO) 2.94 MIL/uL (4.00-5.50); RED CELL DISTRIBUTION WIDTH 15.9 % (11.0-15.5); WHITE BLOOD COUNT (AUTO) 13.6 K/uL (4.8-10.8)
[2021-03-31 05:56] LABS: CREATININE 1.1 mg/dL (0.5-1.5); POTASSIUM 3.7 mmol/L (3.5-5.1)
[2021-03-31 07:12] LABS: ABG BASE EXCESS -1.2 mmol/L (-2.0-3.0); ABG HCO3 20.1 mmol/L (21.0-28.0); ABG OXYGEN SATURATION 97.8 % (95.0-99.0); ABG PCO2 26 mmHg (32-45)
[2021-03-31] MEDS ORDERED: COMPOUND IV MISC 1 EACH IVSOLN MISC PRN (08:00)
[2021-03-31] MEDS: LACTOBACILLUS RHAMNOSUS GG 1 EACH CAP.SPRINK PO SCH ×3 (08:54→20:45)
[2021-03-31] MEDS: FAMOTIDINE 20MG TAB PO SCH (08:54)
[2021-03-31] MEDS: SOLU-MEDROL 40MG VIAL IVP SCH ×2 (08:54→20:46)
[2021-03-31] MEDS: SODIUM BICARBONATE 650 MG TAB PO SCH ×2 (08:54→20:45)
[2021-03-31] MEDS: IRON SUCROSE COMPLEX 100 MG in 0.9%NACL 50ML 50 ML IV SCH (08:54)
[2021-03-31] MEDS: SPIRONOLACTONE 25 MG TAB PO SCH (08:55)
[2021-03-31] MEDS: INSULIN HUMULIN R 100 UNIT/ML 3ML SQ SCH ×3 (11:30→20:47)
[2021-03-31 12:39] LABS: CREATININE 1.1 mg/dL (0.5-1.5); POTASSIUM 3.9 mmol/L (3.5-5.1)
[2021-03-31] MEDS: BALSAM PERU/CASTOR OIL 60 GM TUBE TP SCH ×2 (15:20→20:47)
[2021-03-31] MEDS: ENOXAPARIN SODIUM 80 MG/0.8 ML SQ SCH (17:52)
[2021-03-31] MEDS: 0.9%NACL 1000ML 1,000 ML IV SCH (17:53)
[2021-03-31] MEDS: SODIUM CHLORIDE 1,000 MG TAB PO SCH (20:50)
[2021-04-01] VITALS (24 sets, daily range): BP systolic 81–135; BP diastolic 48–73
[2021-04-01 00:06] LABS: CREATININE 1.2 mg/dL (0.5-1.5); POTASSIUM 3.6 mmol/L (3.5-5.1)
[2021-04-01] MEDS: 0.9%NACL 1000ML 1,000 ML IV SCH ×2 (02:08→12:19)
[2021-04-01] MEDS: CEFTRIAXONE 1G VIAL IVP SCH (02:56)
[2021-04-01 04:05] LABS: HEMATOCRIT 23.1 % (36-48); MEAN CORPUSCULAR HEMOGLOBIN 27.2 pg (27.0-33.0); MEAN CORPUSCULAR HGB CONC 33.8 g/dL (32.0-36.0); MEAN CORPUSCULAR VOLUME 80.5 fL (79-99); RED BLOOD CELL COUNT(AUTO) 2.87 MIL/uL (4.00-5.50); RED CELL DISTRIBUTION WIDTH 16.1 % (11.0-15.5); WHITE BLOOD COUNT (AUTO) 13.7 K/uL (4.8-10.8)
[2021-04-01 04:17] LABS: CREATININE 1.1 mg/dL (0.5-1.5); POTASSIUM 3.4 mmol/L (3.5-5.1)
[2021-04-01] MEDS: FUROSEMIDE 20MG VIAL IV SCH (04:26)
[2021-04-01] MEDS: INSULIN HUMULIN R 100 UNIT/ML 3ML SQ SCH ×4 (05:51→22:08)
[2021-04-01] MEDS: FLUCONAZOLE 400 MG/NS 200 ML 200 ML IV SCH (08:46)
[2021-04-01] MEDS: FAMOTIDINE 20MG TAB PO SCH (08:47)
[2021-04-01] MEDS: SODIUM CHLORIDE 1,000 MG TAB PO SCH ×2 (08:47→22:04)
[2021-04-01] MEDS: LACTOBACILLUS RHAMNOSUS GG 1 EACH CAP.SPRINK PO SCH ×3 (08:47→22:04)
[2021-04-01] MEDS: BALSAM PERU/CASTOR OIL 60 GM TUBE TP SCH ×3 (08:49→22:05)
[2021-04-01] MEDS: SOLU-MEDROL 40MG VIAL IVP SCH ×2 (08:49→21:35)
[2021-04-01] MEDS: SODIUM BICARBONATE 650 MG TAB PO SCH ×2 (08:49→22:04)
[2021-04-01] MEDS: SPIRONOLACTONE 25 MG TAB PO SCH ×2 (08:49→22:05)
[2021-04-01] MEDS: IRON SUCROSE COMPLEX 100 MG in 0.9%NACL 50ML 50 ML IV SCH (10:36)
[2021-04-01 12:15] LABS: CREATININE 0.9 mg/dL (0.5-1.5); POTASSIUM 3.4 mmol/L (3.5-5.1)
[2021-04-01] MEDS: ENOXAPARIN SODIUM 80 MG/0.8 ML SQ SCH (17:30)
[2021-04-01 18:10] LABS: POTASSIUM 3.3 mmol/L (3.5-5.1)
[2021-04-02] VITALS (10 sets, daily range): BP systolic 111–130; BP diastolic 48–76
[2021-04-02 00:07] LABS: POTASSIUM 3.2 mmol/L (3.5-5.1)
[2021-04-02] MEDS: 0.9%NACL 1000ML 1,000 ML IV SCH ×3 (02:48→18:00)
[2021-04-02] MEDS: CEFTRIAXONE 1G VIAL IVP SCH (03:41)
[2021-04-02] MEDS: INSULIN HUMULIN R 100 UNIT/ML 3ML SQ SCH ×4 (06:23→21:14)
[2021-04-02 06:42] LABS: BASOPHILS % (AUTO) 0.1 % (0.0-5.0); HEMATOCRIT 24.2 % (36-48); MEAN CORPUSCULAR HEMOGLOBIN 26.7 pg (27.0-33.0); MEAN CORPUSCULAR HGB CONC 32.6 g/dL (32.0-36.0); MEAN CORPUSCULAR VOLUME 81.8 fL (79-99); MONOCYTES % (AUTO) 5.2 % (3.0-13.0); NEUTROPHILS % (AUTO) 89.6 % (40.0-77.0); PLATELET COUNT (AUTO) 148 K/uL (130-400); RED BLOOD CELL COUNT(AUTO) 2.96 MIL/uL (4.00-5.50); RED CELL DISTRIBUTION WIDTH 16.4 % (11.0-15.5); WHITE BLOOD COUNT (AUTO) 12.8 K/uL (4.8-10.8)
[2021-04-02 07:11] LABS: CREATININE 0.9 mg/dL (0.5-1.5); MAGNESIUM 1.3 mg/dL (1.80-2.40); PHOSPHORUS 3.8 mg/dL (2.5-4.9); POTASSIUM 3.2 mmol/L (3.5-5.1); THYROID STIMULATING HORMONE 1.79 uIU/mL (0.36-3.74)
[2021-04-02] MEDS: SOLU-MEDROL 40MG VIAL IVP SCH (08:50)
[2021-04-02] MEDS: LACTOBACILLUS RHAMNOSUS GG 1 EACH CAP.SPRINK PO SCH ×3 (08:51→21:02)
[2021-04-02] MEDS: FAMOTIDINE 20MG TAB PO SCH (08:51)
[2021-04-02] MEDS: SPIRONOLACTONE 25 MG TAB PO SCH ×2 (08:51→21:02)
[2021-04-02] MEDS: IRON SUCROSE COMPLEX 100 MG in 0.9%NACL 50ML 50 ML IV SCH (08:51)
[2021-04-02] MEDS: SODIUM CHLORIDE 1,000 MG TAB PO SCH ×2 (08:51→21:02)
[2021-04-02] MEDS: SODIUM BICARBONATE 650 MG TAB PO SCH ×2 (08:51→21:02)
[2021-04-02] MEDS: POTASSIUM CHLORIDE 20MEQ/100ML 100 ML IV PRN ×2 (08:52→09:57)
[2021-04-02] MEDS: MAGNESIUM 2GM PREMIX 50ML 50 ML IV PRN ×2 (08:52→14:45)
[2021-04-02] MEDS: FLUCONAZOLE 400 MG/NS 200 ML 200 ML IV SCH (08:52)
[2021-04-02] MEDS: BALSAM PERU/CASTOR OIL 60 GM TUBE TP SCH ×3 (08:53→21:02)
[2021-04-02 13:45] LABS: MAGNESIUM 1.6 mg/dL (1.80-2.40); POTASSIUM 3.8 mmol/L (3.5-5.1)
[2021-04-02] MEDS: ENOXAPARIN SODIUM 80 MG/0.8 ML SQ SCH (16:17)
[2021-04-03] VITALS: BP 138/61
[2021-04-03] MEDS: 0.9%NACL 1000ML 1,000 ML IV SCH ×2 (03:38→13:10)
[2021-04-03 03:52] LABS: MEAN CORPUSCULAR HEMOGLOBIN 26.7 pg (27.0-33.0); MEAN CORPUSCULAR HGB CONC 32.5 g/dL (32.0-36.0); MEAN CORPUSCULAR VOLUME 82.2 fL (79-99); RED BLOOD CELL COUNT(AUTO) 2.92 MIL/uL (4.00-5.50); RED CELL DISTRIBUTION WIDTH 16.5 % (11.0-15.5); WHITE BLOOD COUNT (AUTO) 14.6 K/uL (4.8-10.8)
[2021-04-03 04:00] VITALS: BP 105/45
[2021-04-03 04:10] LABS: CREATININE 0.8 mg/dL (0.5-1.5); MAGNESIUM 1.9 mg/dL (1.80-2.40); PHOSPHORUS 3.1 mg/dL (2.5-4.9); POTASSIUM 3.4 mmol/L (3.5-5.1)
[2021-04-03] MEDS: CEFTRIAXONE 1G VIAL IVP SCH (04:24)
[2021-04-03] MEDS: MAGNESIUM 2GM PREMIX 50ML 50 ML IV PRN (05:45)
[2021-04-03] MEDS: INSULIN HUMULIN R 100 UNIT/ML 3ML SQ SCH ×2 (06:19→11:30)
[2021-04-03] MEDS: BALSAM PERU/CASTOR OIL 60 GM TUBE TP SCH ×2 (07:45→13:10)
[2021-04-03] MEDS: FAMOTIDINE 20MG TAB PO SCH (07:45)
[2021-04-03] MEDS: FLUCONAZOLE 400 MG/NS 200 ML 200 ML IV SCH (07:45)
[2021-04-03] MEDS: SODIUM BICARBONATE 650 MG TAB PO SCH (07:45)
[2021-04-03] MEDS: SODIUM CHLORIDE 1,000 MG TAB PO SCH ×3 (07:45→13:10)
[2021-04-03] MEDS: SPIRONOLACTONE 25 MG TAB PO SCH (07:45)
[2021-04-03] MEDS: LACTOBACILLUS RHAMNOSUS GG 1 EACH CAP.SPRINK PO SCH ×2 (07:45→13:10)
[2021-04-03 07:52] VITALS: BP 136/68
[2021-04-03] MEDS: IRON SUCROSE COMPLEX 100 MG in 0.9%NACL 50ML 50 ML IV SCH (09:04)
[2021-04-03 11:35] VITALS: BP 153/81
[2021-04-03 11:45] LABS: CREATININE 0.8 mg/dL (0.5-1.5); POTASSIUM 3.5 mmol/L (3.5-5.1)
[2021-04-03] MEDS ORDERED: SPIR25TA6 PO (13:41)
[2021-04-03] MEDS ORDERED: SODI650T PO (15:22)
== END 2021-04-03 18:05 | disposition home or self-care (01) | DRG 757 ==
LOC: EDH 23:00 → OBSVTOIN 03-30 03:02 → EDHIP 03-30 03:02 → 4BH 03-30 03:48 → 2DH 03-30 21:40 → 4CH 04-03 05:07
PROVIDERS: ADMIT Internal Medicine Pulmonary Disease; ATTEND Internal Medicine Pulmonary Disease
DX: B37.49 Other urogenital candidiasis (principal); K65.2 Spontaneous bacterial peritonitis; E87.1 Hypo-osmolality and hyponatremia; R18.8 Other ascites; C56.9 Malignant neoplasm of unspecified ovary; N17.9 Acute kidney failure, unspecified; E11.649 Type 2 diabetes mellitus with hypoglycemia without coma; E83.51 Hypocalcemia; E83.42 Hypomagnesemia; K74.60 Unspecified cirrhosis of liver; N18.30 Chronic kidney disease, stage 3 unspecified; E11.22 Type 2 diabetes mellitus with diabetic chronic kidney disease; I12.9 Hypertensive chronic kidney disease with stage 1 through stage 4 chronic kidney disease, or unspecified chronic kidney disease; D64.9 Anemia, unspecified; E78.00 Pure hypercholesterolemia, unspecified; E86.9 Volume depletion, unspecified; I95.9 Hypotension, unspecified; M19.90 Unspecified osteoarthritis, unspecified site; K21.9 Gastro-esophageal reflux disease without esophagitis; Z60.2 Problems related to living alone; L89.312 Pressure ulcer of right buttock, stage 2; Z74.01 Bed confinement status; Z79.01 Long term (current) use of anticoagulants; Z88.2 Allergy status to sulfonamides; Z88.8 Allergy status to other drugs, medicaments and biological substances; Z86.718 Personal history of other venous thrombosis and embolism; Z83.3 Family history of diabetes mellitus; Z82.49 Family history of ischemic heart disease and other diseases of the circulatory system
CPT/HCPCS: 36415; 36600; 70450; 71045; 76705; 80048; 80053; 81001; 82140; 82435; 82803; 82947; 82948; 83540; 83550; 83605; 83690; 83735; 83880; 83930; 84100; 84132; 84145; 84295; 84443; 84484; 85018; 85025; 85027; 86850; 86900; 86901; 87046; 87088; 87324; 87804; 93005; G0378; J0610; J0696; J1450; J1650; J1756; J1815; J1940; J2405; J2920; J3475; J3480; J3490; J7030; J7070; P9046; Q9967